=== PATIENT | female | born 1975 | race Caucasian/White ===

== ENCOUNTER 2017-07-14 15:04 | Emergency (ER) | payer OTHER ==
[~2017-07-14] VITALS: Ht 170.2 cm; Wt 81.6 kg
--- NOTE | 2017-07-14 15:04 | NUR ---
Patient was BIBA and taken to bed 11 via gurney per EMS.
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
[2017-07-14 15:13] VITALS: BP 135/94
--- NOTE | 2017-07-14 15:34 | NUR ---
PT C/O PAIN R FACE RADIATES TO R HEAD & R NECK AT THIS TIME.
--- NOTE | 2017-07-14 16:01 | NUR ---
DR MARTIN AT BEDSIDE
[2017-07-14] MEDS ORDERED: ACETAMINOPHEN 325 MG TAB PO ONE (16:10)
[2017-07-14] MEDS ORDERED: ONDANSETRON 4 MG ODT PO ONE (16:10)
--- NOTE | 2017-07-14 16:16 | NUR ---
WENT TO CT SCAN ACCOMPANIED BY TECH.
--- NOTE | 2017-07-14 16:16 | NUR ---
Patient taken to CT via wheelchair per tech.
--- NOTE | 2017-07-14 16:41 | NUR ---
Nancy loredo in ED - 07/14/17 at 1642 by [email or web address] PT BACK FROM X RAY
--- NOTE | 2017-07-14 16:42 | NUR ---
BACK FROM CT.
--- NOTE | 2017-07-14 18:07 | NUR ---
Patient discharged with BP 144/87; C/O PAIN R NECK & R HEAD 11/09 AT THIS TIME.MD MADE AWARE. Written and verbal after care instructions given and explained. Patient alert, oriented and verbalized understanding of instructions. Ambulatory with steady gait. All questions addressed prior to discharge. ID band removed. Patient advised to follow up with PMD. Rx of NAPROSYN given. Patient educated on indication of medication including possible reaction and side effects. Opportunity to ask questions provided and answered.
[2017-07-14 18:08] VITALS: BP 144/87
== END 2017-07-14 18:07 | disposition home or self-care (01) ==
LOC: MED 15:04
DX: S13.4XXA Sprain of ligaments of cervical spine, initial encounter (principal); S09.90XA Unspecified injury of head, initial encounter; W21.02XA Struck by soccer ball, initial encounter; Y93.89 Activity, other specified; Y92.69 Other specified industrial and construction area as the place of occurrence of the external cause; Y99.0 Civilian activity done for income or pay
CPT/HCPCS: 70450; 70480; 72040; 99284; S0119